=== PATIENT | female | born 2005 | race Two or more races ===

== ENCOUNTER 2024-07-23 20:27 | Emergency (ER) | payer OTHER, MEDICAID ==
[~2024-07-23] VITALS: Ht 177.8 cm; Wt 79.6 kg
--- NOTE | 2024-07-23 21:35 | DVH ---
EXAM: CT NECK WITHOUT CONTRAST INDICATION: POSSIBLE FISH BONE IN RIGHT THROAT Exam Date: 07/23/2024 09:04 PM COMPARISON: None TECHNIQUE: CT of the neck with intravenous contrast. RADIATION DOSE: CTDIvol: 19.45 mGy, DLP: 486.1 mGy*cm CONTRAST: Type of contrast: Contrast injected: ml Contrast ingested: ml FINDINGS: There is a small linear calcific foreign body measuring 8 mm in length and less than 2 mm in diamete r in the lower oropharynx to the right of midline just superior to the level of the hyoid bone consis tent with provided history of fish bone. No evidence of cervical mass lesion, pathologically enlarged lymph nodes or fluid collection. Fat planes of the neck appear intact. Airway and larynx are unremarkable. Parotid, submandibular and thyroid glands are unremarkable. Limited visualized portions of the brain are unremarkable. Osseous structures are unremarkable. IMPRESSION: Evidence of small fish bone in right lower oropharynx as described above.
--- NOTE | 2024-07-23 22:36 | ED.PDOC ---
Eye-HPI HPI Comments PT BELIEVES SHE HAS A FISH BONE IN THE RIGHT SIDE OF HER THROAT FOR THE LAST 30 MINUTES. PAIN INCREASES WHEN SWALLOWING. DENIES DIFFICULTY BREATHING, SHORTNESS OF BREATH, NAUSEA, VOMITING, OR CHEST PAIN. Chief Complaint: Foreign Body Time Seen by MD: 20:49 Allergies: Coded Allergies: NO KNOWN ALLERGIES (Unverified , 07/23/24) Mode of Arrival: Ambulatory Past Medical History PAST MEDICAL HISTORY: Denies Surgical History: Denies all surgeries HAND III CUTTER History: No Pertinent HAND III CUTTER History Family History Family History: Reviewed,noncontributory to illness Constitutional: denies: chills, diaphoresis, fatigue, fever, malaise, sweats, weakness, others EENTM: reports: throat pain; denies: blurred vision, double vision, ear bleeding, ear discharge, ear drainage, ear pain, ear ringing, eye pain, eye redness, hearing loss, mouth pain, mouth swelling, nasal discharge, nose bleeding, nose congestion, nose pain, photophobia, tearing, throat swelling, voice changes, others Respiratory: denies: cough, hemoptysis, orthopnea, SOB at rest, shortness of breath, SOB with excertion, stridor, wheezing, others Cardiovascular: denies: chest pain, dizzy spells, diaphoresis, Dyspnea on exertion, edema, irregular heart beat, left arm pain, lightheadedness, palpitations, PND, syncope, others Gastrointestinal: denies: abdomen distended, abdominal pain, blood streaked bowels, constipated, diarrhea, dysphagia, difficulty swallowing, hematemesis, melena, nausea, poor appetite, poor fluid intake, rectal bleeding, rectal pain, vomiting, others Genitourinary: denies: abnormal vagina bleeding, burning, dyspareunia, dysuria, flank pain, frequency, hematuria, incontinence, pain, , vagina discharge, urgency, others Neurological: denies: dizziness, fainting, headache, left sided numbness, left sided weakness, numbness, paresthesia, pre-existing deficit, right sided numbness, right sided weakness, seizure, speech problems, tingling, tremors, weakness, others Musculoskeletal: denies: back pain, gout, joint pain, joint swelling, muscle pain, muscle stiffness, neck pain, others Integumetry: denies: bruises, change in color, change in hair/nails, dryness, laceration, lesions, lumps, rash, wounds, others Allergic/Immunocompromised: denies: Difficulty Healing, Frequent Infections, Hives, Itching, others Hematologic/Lymphatic: denies: anemia, blood clots, easy bleeding, easy bruising, swollen glands, others Endocrine: denies: excessive hunger, excessive sweating, excessive thirst, excessive urination, flushing, intolerance to cold, intolerance to heat, unexplained weight gain, unexplained weight loss, others Physical Exam General Appearance: No Apparent Distress, Normal HEENT: Normal ENT Inspection, Pharynx Normal, TMs Normal Neck: Full Range of Motion, Non-Tender Respiratory: Lungs Clear, No Respiratory Distress, Normal Breath Sounds Cardiovascular: No Murmur, Normal Peripheral Pulses, Regular Rate/Rhythm Breast Exam: Deferred Gastrointestinal: No Organomegaly, Non Tender, No Pulsatile Mass, Normal Bowel Sounds, Soft Genitalia: Deferred Pelvic: Deferred Rectal: Deferred Extremities: Normal capillary refill, Normal inspection, Normal range of motion, Non-tender, No pedal edema Musculoskeletal : Apperance: Normal Neurologic: Alert, screed operator II-XII nml as Tested, No Motor Deficits, Normal Affect, Normal Mood, No Sensory Deficits Cerebellar Function: Normal Reflexes: Normal Skin: Dry, Normal Color, Warm Lymphatic: No Adenopathy Was a procedure done? Was a procedure done?: No EENT DIFF Eye: N/A Ear: Pharyngitis X-Ray, Labs, Meds, VS Vital Signs Date Time Temp Pulse Resp B/P (MAP) Pulse Ox O2 Delivery O2 Flow Rate FiO2 07/23/24 22:46 79 17 99 Room Air 07/23/24 22:46 98.6 79 17 121/82 (95) 99 98.6 07/23/24 20:45 98.7 89 18 137/79 (98) 99 X-Ray, Labs, Meds, VS Comment CT NECK SOFT TISSUE FINDINGS: There is a small linear calcific foreign body measuring 8 mm in length and less than 2 mm in diameter in the lower oropharynx to the right of midline just superior to the level of the hyoid bone consistent with provided history of fish bone. No evidence of cervical mass lesion, pathologically enlarged lymph nodes or fluid collection. Fat planes of the neck appear intact. Airway and larynx are unremarkable. Parotid, submandibular and thyroid glands are unremarkable. Limited visualized portions of the brain are unremarkable. Osseous structures are unremarkable. IMPRESSION: Evidence of small fish bone in right lower oropharynx as described above. TX: IV HEP-LOCK 20 GAUGE MEDICATIONS: PLAN: PATIENT WILL NEED TO BE TRANSFERRED FOR HIGHER LEVEL OF CARE ENT, DISCUSSED WITH PATIENT INDICATED UNDERSTANDING AND AGREES TO TRANSFER. [facility] REPORT WITH DOCTOR MENDEZ ACCEPTS PATIENT FOR TRANSFER FOR ENT CONSULTATION. BLS PAGED PENDING ETA Time of 1ST Reevaluation: 23:45 Reevaluation 1ST: Unchanged Patient Education/Counseling: Diagnosis, Treatment, Prognosis Family Education/Counseling: Diagnosis, Treatment, Prognosis, Need For Follow Up Departure 1 Departure Time of Disposition: 22:36 Impression: Primary Impression: Foreign body in oropharynx Disposition: 04 INTERMEDIATE CARE FACILITY Discharged With: Relative (Mother) Critical Care Note Critical Care Time?: No Stability Stability form required: DEVON Chen Jul 23, 2024 22:36
[2024-07-24] MEDS: MORPHINE SULFATE INJ 2 MG/ml SYRG IM ONE (00:19)
[2024-07-24 01:00] VITALS: BP 131/86; PULSE 86; RESP 18; TEMP 97.7; O2SAT 99
== END 2024-07-24 01:50 | disposition short-term general hospital (02) ==
LOC: ER 20:27
DX: T17.228A Food in pharynx causing other injury, initial encounter (principal); X58.XXXA Exposure to other specified factors, initial encounter; Y93.89 Activity, other specified; Y92.89 Other specified places as the place of occurrence of the external cause; Y99.8 Other external cause status
CPT/HCPCS: 70490; 96372; 99285; J2270